=== PATIENT | male | born 1990 | race Caucasian/White ===

== ENCOUNTER 2017-09-27 12:13 | Emergency (ER) | payer OTHER ==
[~2017-09-27] VITALS: Ht 175.3 cm; Wt 77.1 kg
[~2017-09-27 12:13] MED LIST: ACETAMINOPHEN-1 EAC1 PO; BACTRIM DS TAB1 EACH PO; BENTYL 20 MG TA20 M1 PO; CLEOCIN HCL300 MG PO; FLEXERIL PO; HYDROCODONE-AP1 EAC6 PO; IBUPROFEN 800800 M1 PO; KEFLEX500 MG PO; LEXAPRO 10 MG T10 M1 PO; NAPROSYN500 MG PO; NORCO 5-325 TA1 EACH PO; NORFLEX100 MG PO; PHENERGAN 25 MG25 M1 PO; TORADOL 10 MG T10 MG PO; XANAX 0.25 MG0.25 MG PO
[2017-09-27] MEDS ORDERED: MEDROLDOSEPACK PO (13:22)
[2017-09-27 13:29] VITALS: BP 121/76
== END 2017-09-27 13:30 | disposition home or self-care (01) ==
LOC: M.ERS 12:13
DX: S43.491A Other sprain of right shoulder joint, initial encounter (principal); F17.200 Nicotine dependence, unspecified, uncomplicated; X50.3XXA Overexertion from repetitive movements, initial encounter; Y93.89 Activity, other specified; Y92.89 Other specified places as the place of occurrence of the external cause; Y99.8 Other external cause status

== ENCOUNTER 2017-10-15 20:13 | Emergency (ER) | payer OTHER ==
[~2017-10-15] VITALS: Ht 175.3 cm; Wt 83.0 kg
[~2017-10-15 20:13] MED LIST changes: +MEDROLDOSEPACK PO
[2017-10-15] MEDS ORDERED: VISTARIL50 MG PO (20:28)
[2017-10-15] MEDS ORDERED: VENLAFAXINE H37.5 MG PO (20:29)
[2017-10-15] MEDS ORDERED: IBUPROFEN 800800 M1 PO (20:29)
[2017-10-15] MEDS ORDERED: VOLTAREN GEL 1100 G2 TOP ×2 (21:19→21:20)
[2017-10-15 21:27] VITALS: BP 113/75
== END 2017-10-15 21:28 | disposition home or self-care (01) ==
LOC: M.ERS 20:13
DX: S46.811A Strain of other muscles, fascia and tendons at shoulder and upper arm level, right arm, initial encounter (principal); F17.210 Nicotine dependence, cigarettes, uncomplicated; X58.XXXA Exposure to other specified factors, initial encounter; Y93.89 Activity, other specified; Y92.89 Other specified places as the place of occurrence of the external cause; Y99.8 Other external cause status

== ENCOUNTER 2018-02-01 14:47 | Emergency (ER) | payer OTHER ==
[~2018-02-01] VITALS: Ht 175.3 cm; Wt 93.9 kg
[~2018-02-01 14:47] MED LIST changes: +VENLAFAXINE H37.5 MG PO; +VISTARIL50 MG PO; +VOLTAREN GEL 1100 G2 TOP
[2018-02-01] MEDS ORDERED: NABUMETONE 750750 M1 PO (16:09)
[2018-02-01 16:40] VITALS: BP 122/70
== END 2018-02-01 16:40 | disposition home or self-care (01) ==
LOC: M.ERS 14:47
DX: S93.402A Sprain of unspecified ligament of left ankle, initial encounter (principal); S90.02XA Contusion of left ankle, initial encounter; F41.9 Anxiety disorder, unspecified; W20.8XXA Other cause of strike by thrown, projected or falling object, initial encounter; Y93.89 Activity, other specified; Y92.89 Other specified places as the place of occurrence of the external cause; Y99.8 Other external cause status

== ENCOUNTER 2018-03-29 14:41 | Emergency (ER) | payer OTHER ==
[~2018-03-29] VITALS: Ht 175.3 cm; Wt 90.7 kg
[~2018-03-29 14:41] MED LIST changes: +NABUMETONE 750750 M1 PO
[2018-03-29] MEDS ORDERED: DOXYCYCLINE 10100 MG PO (15:08)
[2018-03-29 15:14] VITALS: BP 135/85
== END 2018-03-29 15:15 | disposition home or self-care (01) ==
LOC: M.ERS 14:41
DX: H00.031 Abscess of right upper eyelid (principal)

== ENCOUNTER 2018-03-31 15:24 | Emergency (ER) | payer OTHER ==
[~2018-03-31] VITALS: Ht 175.3 cm; Wt 90.7 kg
[~2018-03-31 15:24] MED LIST changes: +DOXYCYCLINE 10100 MG PO
[2018-03-31] MEDS ORDERED: ZOVIRAX800 MG PO (16:38)
[2018-03-31] MEDS ORDERED: NORCO 5-325 TA1 EACH PO (16:38)
[2018-03-31 16:52] VITALS: BP 122/72
== END 2018-03-31 16:53 | disposition home or self-care (01) ==
LOC: M.ERS 15:24
DX: B02.9 Zoster without complications (principal); F41.9 Anxiety disorder, unspecified

== ENCOUNTER 2018-07-26 21:29 | Emergency (ER) | payer OTHER ==
[~2018-07-26] VITALS: Ht 175.3 cm; Wt 90.7 kg
[~2018-07-26 21:29] MED LIST changes: +ZOVIRAX800 MG PO
[2018-07-26 22:06] LABS: ABSOLUTE BASOPHILS 0.1 thou/uL (0.0-0.2); ABSOLUTE EOSINOPHILS 0.1 thou/uL (0.0-0.7); ABSOLUTE LYMPHOCYTES 3.2 thou/uL (0.8-5.3); ABSOLUTE MONOCYTES 0.6 thou/uL (0.0-1.2); BASOPHILS 0.8 %; EOSINOPHILS 1.4 %; HEMATOCRIT 44.8 % (42.0-52.0); HEMOGLOBIN 15.9 gm/dL (14.0-18.0); LYMPHOCYTES 31.8 %; MCH 30.2 pg (26.0-34.0); MCHC 35.4 g/dL (28.0-37.0); MCV 85.4 fL (80.0-100.0); MONOCYTES 5.6 %; MPV 11.1 fl. (7.2-11.1); NUCLEATED RBCS 0 /100WBC; PLATELET COUNT* 244 thou/uL (150-400); POLYS 60.4 %; RBC 5.25 mil/uL (4.50-6.00); RDW-CV 12.7 % (10.5-14.5)
[2018-07-26 22:17] LABS: ALBUMIN 4.2 g/dL (3.4-5.0); CALCIUM 9.4 mg/dL (8.5-10.1); CREATININE 1.3 mg/dL (0.6-1.3); POTASSIUM 3.6 mmol/L (3.5-5.1); TOTAL BILIRUBIN 0.8 mg/dL (<0.1-1.0); TOTAL PROTEIN 7.6 g/dL (6.4-8.2)
[2018-07-26 22:57] LABS: URINE BILIRUBIN NEGATIVE (Negative); URINE BLOOD NEGATIVE (Negative); URINE CLARITY CLEAR; URINE COLOR YELLOW; URINE GLUCOSE-RANDOM 1+ (Negative); URINE KETONES TRACE (Negative); URINE LEUKOCYTES-REFLEX NEGATIVE (Negative); URINE NITRITE-REFLEX NEGATIVE (Negative); URINE PROTEIN TRACE (Negative)
[2018-07-26] MEDS ORDERED: NORCO 5-325 TA1 EACH PO (23:31)
[2018-07-26] MEDS ORDERED: ONDANSETRON HCL4 M2 PO (23:31)
[2018-07-26 23:45] VITALS: BP 115/71
== END 2018-07-26 23:45 | disposition home or self-care (01) ==
LOC: M.ERS 21:29
PROVIDERS: Nurse Practitioner Family
DX: R30.0 Dysuria (principal); R10.9 Unspecified abdominal pain; F41.9 Anxiety disorder, unspecified

== ENCOUNTER 2018-08-12 21:02 | Emergency (ER) | payer OTHER ==
[~2018-08-12] VITALS: Ht 175.3 cm; Wt 90.7 kg
[~2018-08-12 21:02] MED LIST changes: +ONDANSETRON HCL4 M2 PO
[2018-08-12] MEDS ORDERED: PREDNISONE 20 M20 MG PO (22:01)
[2018-08-12] MEDS ORDERED: FLEXERIL PO (22:01)
[2018-08-12] MEDS ORDERED: NORCO 5-325 TA1 EACH PO (22:01)
[2018-08-12 22:26] VITALS: BP 112/76
== END 2018-08-12 22:29 | disposition home or self-care (01) ==
LOC: M.ERS 21:02
DX: M25.511 Pain in right shoulder (principal); F17.200 Nicotine dependence, unspecified, uncomplicated; F41.9 Anxiety disorder, unspecified; Z87.442 Personal history of urinary calculi

== ENCOUNTER 2018-12-06 20:35 | Emergency (ER) | payer OTHER ==
[~2018-12-06] VITALS: Ht 175.3 cm; Wt 95.3 kg
[~2018-12-06 20:35] MED LIST changes: +PREDNISONE 20 M20 MG PO
[2018-12-06 21:06] VITALS: BP 122/73
[2018-12-06] MEDS ORDERED: ACETAMINOPHEN-1 EAC1 PO (21:29)
[2018-12-06] MEDS ORDERED: IBUPROFEN 800800 M1 PO (21:29)
== END 2018-12-06 21:41 | disposition home or self-care (01) ==
LOC: M.ERS 20:35
DX: L55.0 Sunburn of first degree (principal); F17.200 Nicotine dependence, unspecified, uncomplicated; F41.9 Anxiety disorder, unspecified; Z87.442 Personal history of urinary calculi

== ENCOUNTER 2019-01-24 21:04 | Emergency (ER) | payer OTHER ==
[~2019-01-24] VITALS: Ht 175.3 cm; Wt 90.7 kg
[2019-01-24 21:14] VITALS: BP 113/74
[2019-01-24] MEDS ORDERED: IBUPROFEN 800800 M1 PO (21:46)
== END 2019-01-24 22:00 | disposition home or self-care (01) ==
LOC: M.ERS 21:04
DX: S63.8X1A Sprain of other part of right wrist and hand, initial encounter (principal); F17.200 Nicotine dependence, unspecified, uncomplicated; F41.9 Anxiety disorder, unspecified; Z87.442 Personal history of urinary calculi; W22.8XXA Striking against or struck by other objects, initial encounter; Y92.89 Other specified places as the place of occurrence of the external cause; Y93.89 Activity, other specified; Y99.8 Other external cause status

== ENCOUNTER 2020-12-01 13:35 | Emergency (ER) | payer OTHER | END 2020-12-01 14:10 | disposition left against medical advice (07) | LOC: M.ERS 13:35 | DX: Z53.21 Procedure and treatment not carried out due to patient leaving prior to being seen by health care provider (principal) ==